=== PATIENT | male | born 1960 | race Caucasian/White ===

== ENCOUNTER → 2018-12-08 | Outpatient (CLI) | payer OTHER ==
--- NOTE | 2018-12-09 22:26 | MR ---
EXAMINATION TYPE: MR forearm RT wo con DATE OF EXAM: 12/08/2018 COMPARISON: Outside radiographs 11/28/2018 HISTORY: 58-year-old male Rt forearm pain especially along the elbow aspect. Bruising in the forearm. Injury of right forearm, initial encounter. TECHNIQUE: Multiplanar, multisequence images of the proximal right forearm were obtained without IV c ontrast. The elbow was included in the [id number]. Imaging extended to the mid forearm level. FINDINGS: There is evidence of anastasia distal biceps tendon rupture with the stump retracted by 2.0 x 2.5 cm. Ext ensive hematoma, edema, inflammatory changes at the site of rupture with tracking edema extending alina p along the proximal aspect of the forearm. Additional inflammatory edema and hemorrhage extends saira g the median neurovascular bundle and superficial to the pronator teres and medial at the upper forea rm likely indicating tear involvement of the lacertus fibrosis. Prominent fluid signal undercutting the common extensor origin. The humeral attachment of the lateral collateral ligament is not well seen. No elbow joint effusion. No acute fracture identified. IMPRESSION: 1. Distal biceps tendon rupture with stump retracted by 2.0 to 2.5 cm. 2. Extensive inflammatory edema and hemorrhage also tracking superficially over the pronator teres gant ggests tear involvement of the lacertus fibrosis as well. 3. Partial thickness tear involving the deep fibers of the common extensor origin. The humeral attach ment of the lateral collateral ligament is not well seen possibly due to technical factors from large r field of view and imaging assessment centered along the proximal forearm. Clinically correlate.
== END | disposition home or self-care (01) ==
LOC: RADMRIMAIN 06:07
PROVIDERS: ATTEND Physician Assistant
DX: S46.211A Strain of muscle, fascia and tendon of other parts of biceps, right arm, initial encounter (principal); S56.511A Strain of other extensor muscle, fascia and tendon at forearm level, right arm, initial encounter; M62.89 Other specified disorders of muscle

== ENCOUNTER → 2019-04-10 | Outpatient (CLI) | payer BC ==
--- NOTE | 2019-04-10 12:02 | MR ---
EXAMINATION TYPE: MR brain and iac wo/w con DATE OF EXAM: 04/10/2019 COMPARISON: None HISTORY: Tinnitus, right ear TECHNIQUE: Multiplanar, multisequence images of the brain and brainstem with small [id number] and high resolu tion images through the internal auditory canals is performed without and with IV contrast, utilizing 8.5 mL intravenous Gadavist . FINDINGS: Diffusion weighted images demonstrate no evidence of a recent infarct or other diffusion ab normality. There is no extra-axial fluid collection or significant white matter signal abnormality. The ventricular system and cisternal spaces are normal in size and appearance. The brain volume is age appropriate. Midline structures demonstrate normal morphology, there is a partially empty sella. The craniocervic al junction appears within normal limits. Post contrast images demonstrate no abnormal enhancement. Internal auditory canals show symmetric and unremarkable appearance. The dural venous sinuses appear patent. The visualized sinuses are remarkable for minimal inflammatory change in the sphenoid sinus o n the right, possible mucus retention cyst, there is mucosal thickening in the maxillary sinus and th e globes are intact. IMPRESSION: Mild sinus disease. No evident cerebellopontine angle mass.
== END | disposition home or self-care (01) ==
LOC: RADMRIMAIN 08:10
PROVIDERS: ATTEND Internal Medicine
DX: H93.11 Tinnitus, right ear (principal)
CPT/HCPCS: 70553; A9585

== ENCOUNTER → 2019-11-29 | Outpatient (CLI) | payer BC ==
--- NOTE | 2019-11-29 15:06 | CT ---
EXAMINATION TYPE: CT abdomen wo/w con DATE OF EXAM: 11/29/2019 COMPARISON: Ultrasound 11/29/2019 HISTORY: Abnormal US. Upper abdominal pain x [address] DLP: 1058.1 mGycm Automated exposure control for dose reduction was used. TECHNIQUE: Helical acquisition of images was performed from the lung bases through the top of iliac crest to include entire abdomen. CONTRAST: Performed with Oral Contrast and without and with IV Contrast, patient injected with 100 mL of Isovue M300. FINDINGS: LUNG BASES: No significant abnormality is appreciated. LIVER/GB: Liver is increased in size measuring 18 cm. Has a reduced and heterogeneous attenuation. No focal mass. No gallstones. PANCREAS: No significant abnormality is seen. SPLEEN: No significant abnormality is seen. ADRENALS: No significant abnormality is seen. KIDNEYS: No significant abnormality is seen. BOWEL: Bowel gas pattern nonspecific correlate for diverticulosis. Small hiatal hernia noted. LYMPH NODES: No significant abnormality is seen. OSSEOUS STRUCTURES: Hypertrophic and degenerative changes of the spine noted. OTHER: Aorta of normal caliber with mild atherosclerotic changes. IMPRESSION: 1. Hepatomegaly with heterogeneous and reduced attenuation throughout the liver suggestive of hepatic steatosis. Correlate with liver function studies to assess for hepatitis or diffuse hepatocellular d isease. 2. Diverticulosis with no CT evidence of diverticulitis.
== END | disposition home or self-care (01) ==
LOC: RADCTMAIN 13:58
PROVIDERS: ATTEND Physician Assistant
DX: K57.90 Diverticulosis of intestine, part unspecified, without perforation or abscess without bleeding (principal); R16.0 Hepatomegaly, not elsewhere classified
CPT/HCPCS: 74170; Q9967 ×2; 76700

== ENCOUNTER → 2019-11-29 | Outpatient (CLI) | payer BC ==
--- NOTE | 2019-11-29 13:56 | US ---
EXAMINATION TYPE: US abdomen complete DATE OF EXAM: 11/29/2019 COMPARISON: NONE CLINICAL HISTORY: 59-year-old male R10.9 Abdominal pain. Generalized pain. TECHNIQUE: Multiple sonographic images of the abdomen are obtained. FINDINGS: EXAM MEASUREMENTS: Liver Length: 18.2 cm Gallbladder Wall: 0.1 cm CBD: 0.5 cm Spleen: 9.0 cm Right Kidney: 10.2 x 5.5 x 4.6 cm Left Kidney: 11.2 x 5.2 x 5.0 cm Pancreas: Tail obscured by overlying bowel gas. Remainder shows no gross abnormality. Liver: Mildly enlarged, echogenic and heterogeneous. No focal lesion seen. Gallbladder: wnl Evidence for sonographic Graham's sign: neg CBD: wnl Spleen: wnl Right and left kidneys: No hydronephrosis. Upper IVC: wnl Abd Aorta: No AAA visualized IMPRESSION: 1. Mild hepatomegaly (18.2 cm). Heterogeneous and echogenic liver suggests underlying hepatic steatos is or other nonspecific hepatocellular disease. Correlate with LFTs, lipid profile, and patient risk factors. 2. No cholelithiasis or biliary ductal dilatation.
== END | disposition home or self-care (01) ==
LOC: RADUSMAIN 12:55
PROVIDERS: ATTEND Physician Assistant
DX: R16.0 Hepatomegaly, not elsewhere classified (principal); R93.2 Abnormal findings on diagnostic imaging of liver and biliary tract; R10.9 Unspecified abdominal pain
CPT/HCPCS: 76700

== ENCOUNTER → 2020-01-03 | Day surgery (SDC) | payer BC ==
[2019-12-31 15:57] VITALS: BMI 29.7
[~2020-01-03] MED LIST: LACTATED RINGERS 1,000 ML IV ONE; LACTATED RINGERS 1,000 ML IV SCH; LIDOCAINE 1% 20 ML VIAL (10MG/ML) FOR IV START INTRADERMA PRN; LIDOCAINE 1% INJ 10MG/ML (20 ML MDV) ONE; MIDAZOLAM 2 MG/2 ML VIAL ONE; PROPOFOL 10 MG/ML 20 ML VIAL IV ONE; fentaNYL (PF) 50 MCG/ML 2 ML AMP ONE
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
[2020-01-03 07:25] VITALS: TEMP 97.4
[2020-01-03 07:25] LABS: Glucose,Whole Blood 146 mg/dL (75-99)
--- NOTE | 2020-01-03 07:46 | P.PCN ---
Date of Procedure: 01/03/20 Description of Procedure: PREOPERATIVE DIAGNOSIS: Gastroesophageal reflux disease. Epigastric abdominal pain POSTOPERATIVE DIAGNOSIS: Gastroesophageal reflux disease. Epigastric abdominal pain Gastritis with recent bleeding, chronic Chow's esophagus Diaphragmatic hiatal hernia OPERATION: Esophagogastroduodenoscopy with biopsies along antrum and distal esophagus for Chow's SURGEON: Arabella Momin MD ANESTHESIA: MAC. INDICATIONS: The patient is a 59-year-old male who presents with a history of reflux disease. Benefits and risks of the procedure were described. Informed consent was obtained. DESCRIPTION: The patient was brought into the endoscopy suite and laid in the left lateral decubitus position. An Olympus gastroscope was passed along the posterior oropharynx down to the distal esophagus where the squamocolumnar junction was encountered at 40 cm from the incisors. The stomach was entered and no bile reflux was found. Additional findings are listed below. Biopsies with cold forceps were obtained of the antrum. The first through third portion of the duodenum was examined and unremarkable. Retroflexion of the scope confirmed Hill grade 3 lower esophageal valve. The squamocolumnar junction demonstrated LA grade D erosive esophagitis. The stomach was desufflated. The patient tolerated the procedure well. FINDINGS: Squamocolumnar junction 35 cm from the incisors. Diaphragmatic hiatus at 40 cm. Hiatal hernia, 5 cm Hill grade 4 lower esophageal valve. LA grade D erosive esophagitis with features of Chow's esophagus, biopsies obtained No active duodenitis. Chronic gastritis with recent bleed RECOMMENDATIONS: 1. Recommend discontinue tobacco use for Chow's esophagus 2. Antacid therapy, lifelong for Chow's esophagus 3. Recommend repair of hiatal hernia for Chow's esophagus Plan - Discharge Summary Discharge Rx Participant: No New Discharge Prescriptions: Continue Famotidine 40 mg PO DAILY metFORMIN HCL [Glucophage] 500 mg PO DAILY Simvastatin [Zocor] 80 mg PO QAM Multivitamins, Thera [Multivitamin (formulary)] 1 each PO DAILY Metoprolol Succinate [Toprol XL] 25 mg PO DAILY Cholecalciferol [Vitamin D3 (25 Mcg = 1000 Iu)] 1,000 units PO DAILY Aspirin [Adult Low Dose Aspirin EC] 81 mg PO DAILY Icosapent Ethyl [Vascepa] 2 gm PO BID Losartan Potassium 100 mg PO DAILY Discharge Medication List Aspirin [Adult Low Dose Aspirin EC] 81 mg PO DAILY 11/03/16 [History] Cholecalciferol [Vitamin D3 (25 Mcg = 1000 Iu)] 1,000 units PO DAILY 11/03/16 [History] Famotidine 40 mg PO DAILY 11/03/16 [History] Metoprolol Succinate [Toprol XL] 25 mg PO DAILY 11/03/16 [History] Multivitamins, Thera [Multivitamin (formulary)] 1 each PO DAILY 11/03/16 [History] Simvastatin [Zocor] 80 mg PO QAM 11/03/16 [History] metFORMIN HCL [Glucophage] 500 mg PO DAILY 11/03/16 [History] Icosapent Ethyl [Vascepa] 2 gm PO BID 12/31/19 [History] Losartan Potassium 100 mg PO DAILY 12/31/19 [History] Follow up Appointment(s)/Referral(s): Arabella Momin MD [STAFF PHYSICIAN] - 01/22/20 Patient Instructions/Handouts: Hiatal Hernia (DC), Chow Esophagus (DC), How to Stop Smoking (DC), Gastritis (DC) Discharge Disposition: HOME SELF-CARE
[2020-01-03 08:04] VITALS: BP 119/84; PULSE 84; RESP 18
== END | disposition home or self-care (01) ==
LOC: ORWHC2ENDO 06:49
PROVIDERS: ATTEND Surgery Plastic and Reconstructive Surgery
DX: K22.70 Barrett's esophagus without dysplasia (principal); K22.10 Ulcer of esophagus without bleeding; K44.9 Diaphragmatic hernia without obstruction or gangrene; K29.51 Unspecified chronic gastritis with bleeding; K21.9 Gastro-esophageal reflux disease without esophagitis; E11.9 Type 2 diabetes mellitus without complications; E78.5 Hyperlipidemia, unspecified; I10 Essential (primary) hypertension; H93.11 Tinnitus, right ear; F17.210 Nicotine dependence, cigarettes, uncomplicated; Z79.84 Long term (current) use of oral hypoglycemic drugs; Z79.82 Long term (current) use of aspirin; Z79.899 Other long term (current) drug therapy; Z88.0 Allergy status to penicillin
CPT/HCPCS: 88305; 43239; J2250; J2001; J3010; J2704